=== PATIENT | female | born 1940 | race Caucasian/White ===

== ENCOUNTER 2017-01-23 11:29 | Emergency (ER) | payer OTHER ==
[~2017-01-23] VITALS: Ht 157.5 cm; Wt 118.0 kg
[2017-01-23 13:20] LABS: HEMATOCRIT 44.6 % (36.0-46.0); MCH 29.4 PG (29.0-34.0); MCHC 33.6 G/DL (30.0-36.0); MCV 87.3 FL (83-99); MEAN PLAT.VOLUME 10.3 uM^3 (9.5-12.4); PLATELET COUNT 236 K/uL (156-360); RBC DIS.WIDTH-CV 13.6 % (11.8-14.6); RBC DIS.WIDTH-SD 43.8 % (39-53); RED BLOOD COUNT 5.11 M/uL (3.80-5.20); WHITE BLOOD COUNT 7.3 K/uL (4.1-10.2)
[2017-01-23 13:30] LABS: CHLORIDE 104 mEq/L (99-109); D-DIMER ELISA 0.65 mg/L FEU (< 0.57); POTASSIUM 3.8 mEq/L (3.7-5.4); SODIUM 143 mEq/L (136-147)
[2017-01-23 13:32] LABS: GLUCOSE 121 mg/dL (70-99)
[2017-01-23 13:33] LABS: ANION GAP 11 MEQ/L (2-14)
[2017-01-23 13:36] LABS: GFR ESTIMATE (CALCULATED) > 59 mL/min/
[2017-01-23 13:37] LABS: UREA NITROGEN (BUN) 17 mg/dL (9-23)
[2017-01-23 13:43] LABS: TROP-I INTERPRETATION NEGATIVE; TROPONIN-I < 0.01 ng/mL (0.0-0.30)
[2017-01-23] MEDS ORDERED: LASIX20 MG PO (16:06)
[2017-01-23] MEDS ORDERED: K-DUR20 MEQ PO (16:06)
[2017-01-23 16:53] LABS: TROP-I INTERPRETATION NEGATIVE; TROPONIN-I < 0.01 ng/mL (0.0-0.30)
[2017-01-23 17:48] VITALS: BP 154/101
== END 2017-01-23 18:06 | disposition home or self-care (01) ==
LOC: EME 11:29
PROVIDERS: Emergency Medicine
DX: R07.9 Chest pain, unspecified (principal); R60.9 Edema, unspecified; R06.00 Dyspnea, unspecified; E78.5 Hyperlipidemia, unspecified; I10 Essential (primary) hypertension
CPT/HCPCS: 71010; 71275; 80048; 83880; 84484; 85027; 85379; 93005; 99281; 99285; J1940; J7030